=== PATIENT | male | born 1965 | race Hispanic/Latino ===

== ENCOUNTER 2020-11-02 15:06 | Emergency (ER) | payer SELFPAY ==
[~2020-11-02] VITALS: Ht 165.1 cm; Wt 90.7 kg
[~2020-11-02 15:06] MED LIST: CLONAZEPAM0.5 MG PO; DIVALPROEX SOD500 MG PO; DOCUSATE SODIU250 MG PO; LIPITOR10 MG PO; LISINOPRIL20 MG PO; MIRTAZAPINE15 MG PO; OMEPRAZOLE20 MG PO; RANITIDINE HCL150 MG PO; RISPERDAL1 MG PO; SERTRALINE HCL100 MG PO; TAMSULOSIN HCL0.4 MG PO; TRAMADOL HCL50 MG PO; TRAZODONE HCL50 MG PO
[2020-11-02] MEDS ORDERED: FLOMAX0.4 MG PO (17:09)
[2020-11-02] MEDS ORDERED: HUMULIN N100 UNIT/1 SUB-Q (17:17)
[2020-11-02] MEDS ORDERED: HALOPERIDOL5 MG PO (17:18)
--- NOTE | 2020-11-03 16:04 | EKG ---
[facility] [address] [facility] [place], [place] [address] Signed Normal sinus rhythm Normal ECG No previous ECGs available Confirmed by ADRIÁN CHIU DO ([id number]) on 11/03/2020 4:04:16 PM Electronically Signed By: ADRIÁN CHIU DO 11/03/20 1604 PATIENT NAME: GEOVANI KHAN Electrocardiogram DATE OF : 67 PHYSICIAN: ADRIÁN CHIU DO REPORT #: [id number] REPORT IS CONFIDENTIAL AND NOT TO BE RELEASED WITHOUT AUTHORIZATION
--- NOTE | 2020-11-03 16:06 | EKG ---
[facility] [address] [facility] [place], [place] [address] Signed Normal sinus rhythm Normal ECG When compared with ECG of 02-NOV-2020 15:12, (Unconfirmed) No significant change was found Confirmed by ADRIÁN CHIU DO ([id number]) on 11/03/2020 4:06:06 PM Electronically Signed By: ADRIÁN CHIU DO 11/03/20 1606 PATIENT NAME: GEOVANI KHAN Electrocardiogram DATE OF : 67 PHYSICIAN: ADRIÁN CHIU DO REPORT #: [id number] REPORT IS CONFIDENTIAL AND NOT TO BE RELEASED WITHOUT AUTHORIZATION
== END 2020-11-02 19:05 | disposition home or self-care (01) ==
LOC: ED 15:06
DX: R07.89 Other chest pain (principal); E11.9 Type 2 diabetes mellitus without complications; E78.00 Pure hypercholesterolemia, unspecified; I10 Essential (primary) hypertension; E11.40 Type 2 diabetes mellitus with diabetic neuropathy, unspecified; J45.909 Unspecified asthma, uncomplicated; Z87.891 Personal history of nicotine dependence; Z79.899 Other long term (current) drug therapy; Z88.0 Allergy status to penicillin; Z91.030 Bee allergy status
CPT/HCPCS: 71045; 80053; 83735; 84484; 85025; 93005; 93010; 96374; 99285-25; A9270; J2270